=== PATIENT | male | born 1995 | race Caucasian/White ===

== ENCOUNTER 2016-11-28 16:27 | Emergency (ER) | payer SELFPAY ==
[~2016-11-28] VITALS: Ht 187.9 cm; Wt 136.1 kg
[~2016-11-28 16:27] MED LIST: BACTRIM DS 8001 TA1 PO; BACTRIM DS 8001 TAB PO; CEPHALEXIN500 M1 PO; EC NAPROSYN500 MG PO; FLEXERIL10 MG PO; FLEXERIL5 MG PO; HYDROCODONE BIT1 T11 PO; KEFLEX500 MG PO; MOTRIN800 MG PO; NAPROSYN500 MG PO; NORCO 325 MG-51 TAB PO; NORCO 5-325 TA1 EACH PO; PREDNICOT20 MG PO; ULTRAM50 MG PO; VOLTAREN50 M1 PO; VYVANSE60 MG PO; VYVANSE70 MG PO; ZOFRAN ODT4 MG SL; ZYRTEC10 MG PO
[2016-11-28] MEDS ORDERED: MEDROL DOSEPAK4 MG PO (17:38)
== END 2016-11-28 18:01 | disposition home or self-care (01) ==
LOC: ED 16:27
DX: T20.56XA Corrosion of first degree of forehead and cheek, initial encounter (principal); T26.82XA Corrosions of other specified parts of left eye and adnexa, initial encounter; T26.81XA Corrosions of other specified parts of right eye and adnexa, initial encounter; F17.200 Nicotine dependence, unspecified, uncomplicated; Z88.1 Allergy status to other antibiotic agents; Z88.6 Allergy status to analgesic agent; Y93.89 Activity, other specified; Y92.9 Unspecified place or not applicable; Y99.9 Unspecified external cause status

== ENCOUNTER 2017-03-19 03:18 | Emergency (ER) | payer SELFPAY ==
[~2017-03-19] VITALS: Ht 180.3 cm; Wt 117.9 kg
[~2017-03-19 03:18] MED LIST changes: +MEDROL DOSEPAK4 MG PO
[2017-03-19] MEDS ORDERED: DOXYCYCLINE HY100 M3 PO (03:44)
[2017-03-19] MEDS ORDERED: SEPTDS PO (03:44)
== END 2017-03-19 04:08 | disposition home or self-care (01) ==
LOC: ED 03:18
DX: L02.31 Cutaneous abscess of buttock (principal); Z88.8 Allergy status to other drugs, medicaments and biological substances

== ENCOUNTER 2018-02-08 06:35 | Emergency (ER) | payer SELFPAY ==
[~2018-02-08] VITALS: Ht 187.9 cm; Wt 127.0 kg
[~2018-02-08 06:35] MED LIST changes: +DOXYCYCLINE HY100 M3 PO; +SEPTDS PO
[2018-02-08 07:12] LABS: BASO # 0.1 10*3/uL (0.0-0.1); BASO % 0.5 % (0.0-1.0); EOS # 0.1 10*3/uL (0.0-0.4); EOS % 0.9 % (1.0-4.0); HEMATOCRIT 44.3 % (42.0-52.0); HEMOGLOBIN 15.2 g/dl (14.0-18.0); LYMPH # 2.2 10*3/uL (1.3-4.4); LYMPH % 16.5 % (27.0-41.0); MEAN CELL VOLUME 91.5 fl (80.0-94.0); MEAN CORPUSCULAR HGB 31.4 pg (27.0-31.0); MEAN CORPUSCULAR HGB CONC 34.3 g/dl (33.0-37.0); MEAN PLATELET VOLUME 10.7 fl (9.6-12.3); MONO % 7.4 % (3.0-9.0); NEUT # 9.8 10*3/uL (2.3-7.9); NEUT % 74.3 % (47.0-73.0); PLATELET COUNT AUTOMATED 281 10*3/uL (130-400); RED BLOOD COUNT 4.84 10*6/uL (4.50-5.90); RED CELL DISTRI WIDTH 11.9 % (0-14.5); WHITE BLOOD COUNT 13.2 10*3/uL (4.8-10.8)
[2018-02-08 07:21] LABS: BILIRUBIN NEGATIVE (NEGATIVE); BLOOD NEGATIVE (NEGATIVE); CLARITY CLEAR (CLEAR); COLOR YELLOW (YELLOW); GLUCOSE NEGATIVE (NEGATIVE); KETONE NEGATIVE (NEGATIVE); LEUKO ESTERASE NEGATIVE (NEGATIVE); NITRITE NEGATIVE (NEGATIVE); UROBILINOGEN 0.2 E.U./dl (0.2-1.0)
[2018-02-08 07:30] LABS: ALBUMIN 4.3 gm/dl (3.1-4.5); ALKALINE PHOSPHATASE 80 U/L (45-117); BUN 8 mg/dl (7-24); CHLORIDE 107 mmol/L (98-107); CREATININE 1.02 mg/dL (0.70-1.30); POTASSIUM 3.6 mmol/L (3.5-5.1); SGOT/AST 17 IU/L (3-35); SGPT/ALT 34 U/L (12-78); SODIUM 141 mmol/L (136-145); TOTAL PROTEIN 8.1 gm/dL (6.4-8.2)
[2018-02-08 07:30] LABS: URINE AMPHETAMINES < 1000 (1000ng/ml); URINE BARBITURATES < 200 (200ng/ml); URINE BENZODIAZEPINES < 200 (200ng/ml); URINE CANNABINOIDS (THC) < 50 (50ng/ml); URINE COCAINE > 300 (300ng/ml); URINE METHADONE < 300 (300ng/ml); URINE OPIATES < 300 (300ng/ml)
[2018-02-08 07:31] LABS: ACETAMINOPHEN (TYLENOL) < 5.0 ug/ml (10-30); ETHYL ALCOHOL < 3.0 mg/dl (<3)
[2018-02-08 07:31] LABS: URINE PHENCYCLIDINE < 25 (25ng/ml)
[2018-02-08 07:36] LABS: EPITHELIAL CELLS 0-2; RBC 0-2 rbc/hpf (0-2); WBC 0-2 wbc/hpf (0-5)
[2018-02-09] MEDS ORDERED: Orphenadrine C100 MG PO (20:08)
[2018-02-09] MEDS ORDERED: Motrin,Rufen800 MG PO (20:08)
== END 2018-02-08 10:50 | disposition home or self-care (01) ==
LOC: ED 06:35
PROVIDERS: Student in an Organized Health Care Education/Training Program
DX: F32.9 Major depressive disorder, single episode, unspecified (principal); R45.851 Suicidal ideations; Z88.6 Allergy status to analgesic agent

== ENCOUNTER 2018-02-09 17:04 | Emergency (ER) | payer SELFPAY ==
[~2018-02-09] VITALS: Ht 187.9 cm; Wt 127.0 kg
[2018-02-09] MEDS ORDERED: Motrin,Rufen800 MG PO (20:08)
[2018-02-09] MEDS ORDERED: Orphenadrine C100 MG PO (20:08)
== END 2018-02-09 20:09 | disposition home or self-care (01) ==
LOC: ED 17:04
DX: S39.012A Strain of muscle, fascia and tendon of lower back, initial encounter (principal); R51 Headache; F17.200 Nicotine dependence, unspecified, uncomplicated; Z88.6 Allergy status to analgesic agent; V43.52XA Car driver injured in collision with other type car in traffic accident, initial encounter; Y93.89 Activity, other specified; Y92.413 State road as the place of occurrence of the external cause; Y99.8 Other external cause status

== ENCOUNTER 2019-02-17 21:44 | Emergency (ER) | payer SELFPAY ==
[~2019-02-17] VITALS: Ht 187.9 cm; Wt 132.4 kg
[~2019-02-17 21:44] MED LIST changes: +Motrin,Rufen800 MG PO; +Orphenadrine C100 MG PO
[2019-02-17] MEDS ORDERED: SEPTDS PO ×2 (22:10→22:22)
[2019-02-17] MEDS ORDERED: CEPHALEXIN500 M1 PO ×2 (22:10→22:22)
== END 2019-02-17 22:26 | disposition home or self-care (01) ==
LOC: ED 21:44
DX: L05.91 Pilonidal cyst without abscess (principal); Z88.6 Allergy status to analgesic agent

== ENCOUNTER → 2020-04-14 | Outpatient (CLI) | payer SELFPAY | END | disposition home or self-care (01) | LOC: COVID19 13:57 | PROVIDERS: ATTEND Internal Medicine | DX: Z20.822 Contact with and (suspected) exposure to COVID-19 (principal) ==

== ENCOUNTER 2020-09-26 23:57 | Emergency (ER) | payer OTHER ==
[~2020-09-26] VITALS: Ht 187.9 cm; Wt 127.0 kg
== END 2020-09-27 02:37 | disposition home or self-care (01) ==
LOC: ED 23:57
DX: S39.012A Strain of muscle, fascia and tendon of lower back, initial encounter (principal); S16.1XXA Strain of muscle, fascia and tendon at neck level, initial encounter; F32.9 Major depressive disorder, single episode, unspecified; F17.200 Nicotine dependence, unspecified, uncomplicated; Z88.8 Allergy status to other drugs, medicaments and biological substances; Z79.2 Long term (current) use of antibiotics; Z79.899 Other long term (current) drug therapy; V43.62XA Car passenger injured in collision with other type car in traffic accident, initial encounter; Y93.I9 Activity, other involving external motion; Y92.488 Other paved roadways as the place of occurrence of the external cause; Y99.8 Other external cause status

== ENCOUNTER → 2021-02-20 | Outpatient (CLI) | payer MEDICAID | END | disposition home or self-care (01) | LOC: CARD 10:40 | PROVIDERS: ATTEND Social Worker Clinical | DX: Z51.81 Encounter for therapeutic drug level monitoring (principal); Z79.899 Other long term (current) drug therapy ==

== ENCOUNTER → 2021-03-17 | Outpatient (CLI) | payer OTHER | LOC: COVID19 15:37 | PROVIDERS: ATTEND Internal Medicine | DX: Z11.52 Encounter for screening for COVID-19 (principal); Z20.822 Contact with and (suspected) exposure to COVID-19 ==

== ENCOUNTER 2021-08-31 20:01 | Emergency (ER) | payer OTHER ==
[~2021-08-31] VITALS: Ht 187.9 cm; Wt 127.0 kg
[2021-08-31 20:32] LABS: BILIRUBIN Negative (Negative); BLOOD Negative (Negative); CLARITY Turbid (Clear); COLOR Yellow (Yellow); GLUCOSE Negative (Negative); KETONE Trace (Negative); LEUKO ESTERASE Negative (Negative); NITRITE Negative (Negative); SPECIFIC GRAVITY 1.025 (1.001-1.030)
[2021-08-31 20:40] LABS: URINE AMPHETAMINES < 1000 (1000ng/ml); URINE BARBITURATES < 200 (200ng/ml); URINE BENZODIAZEPINES < 200 (200ng/ml); URINE CANNABINOIDS (THC) > 50 (50ng/ml); URINE COCAINE > 300 (300ng/ml); URINE METHADONE < 300 (300ng/ml); URINE OPIATES < 300 (300ng/ml)
[2021-08-31 20:43] LABS: URINE PHENCYCLIDINE < 25 (25ng/ml)
[2021-08-31 20:43] LABS: BASO # 0.1 10*3/uL (0.0-0.1); BASO % 0.4 % (0.0-1.0); EOS # 0.1 10*3/uL (0.0-0.4); EOS % 0.5 % (1.0-4.0); HEMATOCRIT 45.2 % (42.0-52.0); LYMPH # 1.3 10*3/uL (1.3-4.4); LYMPH % 9.9 % (27.0-41.0); MEAN CELL VOLUME 90.9 fl (80.0-94.0); MEAN CORPUSCULAR HGB 30.6 pg (27.0-31.0); MEAN CORPUSCULAR HGB CONC 33.6 g/dl (33.0-37.0); MEAN PLATELET VOLUME 11.2 fl (9.6-12.3); MONO # 0.6 10*3/uL (0.1-1.0); MONO % 4.9 % (3.0-9.0); NEUT # 10.7 10*3/uL (2.3-7.9); NEUT % 83.6 % (47.0-73.0); PLATELET COUNT AUTOMATED 263 10*3/uL (130-400); RED BLOOD COUNT 4.97 10*6/uL (4.50-5.90); RED CELL DISTRI WIDTH 11.9 % (0-14.5); WHITE BLOOD COUNT 12.8 10*3/uL (4.8-10.8)
[2021-08-31 20:58] LABS: ALKALINE PHOSPHATASE 75 U/L (45-117); BUN 11 mg/dl (7-24); CHLORIDE 105 mmol/L (98-107); CPK 113 U/L (39-308); CREATININE 1.09 mg/dL (0.70-1.30); ETHYL ALCOHOL < 3.0 mg/dl (<3); POTASSIUM 3.6 mmol/L (3.5-5.1); SGOT/AST 18 IU/L (3-35); SGPT/ALT 24 U/L (12-78); SODIUM 139 mmol/L (136-145); TOTAL PROTEIN 7.8 gm/dL (6.4-8.2)
[2021-08-31 20:59] LABS: ACETAMINOPHEN (TYLENOL) < 5.0 ug/ml (10-30)
== END 2021-09-01 04:37 ==
LOC: ED 20:01
PROVIDERS: Emergency Medicine
DX: F31.9 Bipolar disorder, unspecified (principal); Z20.822 Contact with and (suspected) exposure to COVID-19

== ENCOUNTER 2022-08-14 00:07 | Emergency (ER) | payer OTHER ==
[~2022-08-14] VITALS: Ht 180.3 cm; Wt 113.4 kg
== END 2022-08-14 01:25 | disposition left against medical advice (07) ==
LOC: ED 00:07
DX: R10.11 Right upper quadrant pain (principal); R11.0 Nausea; F31.9 Bipolar disorder, unspecified; F90.9 Attention-deficit hyperactivity disorder, unspecified type; Z88.6 Allergy status to analgesic agent; Z88.8 Allergy status to other drugs, medicaments and biological substances; F17.200 Nicotine dependence, unspecified, uncomplicated; F14.10 Cocaine abuse, uncomplicated

== ENCOUNTER 2022-08-15 11:18 | Inpatient (IN) | payer OTHER ==
[~2022-08-15] VITALS: Ht 188 cm; Wt 132.0 kg
[2022-08-15 11:24] VITALS: BP 116/71
[2022-08-15 11:59] LABS: HEMATOCRIT 43.2 % (42.0-52.0); MEAN CELL VOLUME 88.9 fl (80.0-94.0); MEAN CORPUSCULAR HGB 30.9 pg (27.0-31.0); MEAN CORPUSCULAR HGB CONC 34.7 g/dl (33.0-37.0); MEAN PLATELET VOLUME 10.8 fl (9.6-12.3); PLATELET COUNT AUTOMATED 280 10*3/uL (130-400); RED BLOOD COUNT 4.86 10*6/uL (4.50-5.90); RED CELL DISTRI WIDTH 12.1 % (0-14.5); WHITE BLOOD COUNT 22.5 10*3/uL (4.8-10.8)
[2022-08-15 12:03] LABS: MANUAL DIFF REFLEX YES
[2022-08-15 12:16] LABS: ALKALINE PHOSPHATASE 71 U/L (46-116); BUN 14 mg/dl (9-23); CHLORIDE 103 mmol/L (98-107); LIPASE 374 U/L (12-53); POTASSIUM 3.5 mmol/L (3.4-5.1); SGPT/ALT 15 U/L (10-49); TOTAL PROTEIN 7.9 gm/dL (6.0-8.0)
[2022-08-15 12:18] LABS: BASOPHILS 2 % (0-1); PLATELET SUFFICIENCY NORMAL (NORMAL); POLYCHROMASIA SLIGHT; TOTAL CELLS COUNTED 100 #CELLS; TOXIC GRANULATION SLIGHT; VACUOLATION OF NEUTROPHILS SLIGHT
[2022-08-15 13:33] LABS: BILIRUBIN Negative (Negative); BLOOD Negative (Negative); CLARITY Clear (Clear); COLOR Yellow (Yellow); GLUCOSE Negative (Negative); KETONE Negative (Negative); LEUKO ESTERASE Negative (Negative); NITRITE Negative (Negative); SPECIFIC GRAVITY >= 1.030 (1.001-1.030)
[2022-08-15 13:35] LABS: BACTERIA TRACE; EPITHELIAL CELLS 0-2; MUCOUS 1+; RBC 0-2 rbc/hpf (0-2); WBC 0-2 wbc/hpf (0-5)
[2022-08-15 14:45] VITALS: BP 136/69
[2022-08-15 20:00] VITALS: BP 143/89
[2022-08-16] VITALS: BP 141/83
[2022-08-16 06:25] LABS: HEMATOCRIT 38.9 % (42.0-52.0); MEAN CELL VOLUME 91.1 fl (80.0-94.0); MEAN CORPUSCULAR HGB 30.9 pg (27.0-31.0); MEAN CORPUSCULAR HGB CONC 33.9 g/dl (33.0-37.0); MEAN PLATELET VOLUME 11.3 fl (9.6-12.3); PLATELET COUNT AUTOMATED 255 10*3/uL (130-400); RED BLOOD COUNT 4.27 10*6/uL (4.50-5.90); RED CELL DISTRI WIDTH 12.3 % (0-14.5); WHITE BLOOD COUNT 19.7 10*3/uL (4.8-10.8)
[2022-08-16 06:56] LABS: MANUAL DIFF REFLEX YES
[2022-08-16 07:20] LABS: VITAMIN D, 25-HYDROXY 21.1 ng/mL (30-100)
[2022-08-16 07:26] LABS: ALKALINE PHOSPHATASE 63 U/L (46-116); BUN 8 mg/dl (9-23); CHLORIDE 105 mmol/L (98-107); CHOLESTEROL 100 mg/dL (<200); FREE T4 0.88 ng/dl (0.89-1.76); LDL CHOLESTEROL 51 mg/dL (9-159); LIPASE 173 U/L (12-53); SGPT/ALT 10 U/L (10-49); THYROID STIM HORMONE (HS) 0.447 uIU/ml (0.550-4.780); TOTAL PROTEIN 6.9 gm/dL (6.0-8.0); TRIGLYCERIDES 62 mg/dl (<150)
[2022-08-16 08:00] VITALS: BP 139/84
[2022-08-16 08:18] LABS: ATYPICAL LYMPHS 1 % (0-0); PLATELET SUFFICIENCY NORMAL (NORMAL); TOTAL CELLS COUNTED 100 #CELLS
[2022-08-16 12:00] VITALS: BP 140/98
[2022-08-16] MEDS ORDERED: METRONIDAZOLE500 M1 PO (14:06)
[2022-08-16] MEDS ORDERED: CIPRO500 MG PO (14:06)
[2022-08-16] MEDS ORDERED: HYDROCODONE-AC1 EAC1 PO (14:13)
== END 2022-08-16 15:34 | disposition home or self-care (01) | DRG 720 ==
LOC: ED 11:18 → EDHOLD 13:28 → 4E 13:28
PROVIDERS: Internal Medicine; Student in an Organized Health Care Education/Training Program; ADMIT Internal Medicine; ATTEND Internal Medicine
DX: A41.9 Sepsis, unspecified organism (principal); K85.00 Idiopathic acute pancreatitis without necrosis or infection; R74.8 Abnormal levels of other serum enzymes; R73.9 Hyperglycemia, unspecified; F31.9 Bipolar disorder, unspecified; K80.20 Calculus of gallbladder without cholecystitis without obstruction; Z88.8 Allergy status to other drugs, medicaments and biological substances